=== PATIENT | male | born 1995 | race Caucasian/White ===

== ENCOUNTER → 2019-11-01 | Outpatient (CLI) | payer SELFPAY | END | disposition home or self-care (01) | LOC: LAB SHORT 19:21 → LAB EV 19:21 | DX: R21 Rash and other nonspecific skin eruption (principal) | CPT/HCPCS: 87070; 87147; 87205 ==

== ENCOUNTER 2022-08-04 05:26 | Emergency (ER) | payer OTHER ==
[~2022-08-04] VITALS: Ht 170.2 cm; Wt 97.5 kg
[2022-08-04] MEDS ORDERED: AMOCLA875 PO (07:00)
[2022-08-04] MEDS ORDERED: HYDR1TAB94 PO (07:00)
== END 2022-08-04 07:24 | disposition home or self-care (01) ==
LOC: ER 05:26
DX: S02.5XXA Fracture of tooth (traumatic), initial encounter for closed fracture (principal); K08.89 Other specified disorders of teeth and supporting structures; F17.200 Nicotine dependence, unspecified, uncomplicated; X58.XXXA Exposure to other specified factors, initial encounter
CPT/HCPCS: 99282